=== PATIENT | male | born 1970 | race Asian ===

== ENCOUNTER 2017-02-15 14:40 | Emergency (ER) | payer OTHER ==
--- NOTE | 2017-02-15 14:43 | PDOC ---
History of Present Illness - General History Source: Patient Exam Limitations: No Limitations - History of Present Illness Initial Comments: 02/15/17 14:58 46 y/o M with a PMHx of migraines presents to the ED sent by PCP with RLQ pain for two days. Patient reports some constipation. Patient reports that he lifts weights. He denies nausea, vomiting, diarrhea. Denies back pain, dysuria, hematuria. PCP: Dr. Tamia Urbano <Sona Lorenzo - Last Filed: 02/15/17 16:42> <Jonh Irwin - Last Filed: 02/15/17 16:47> - General Chief Complaint: Pain Stated Complaint: ABD PAIN Time Seen by Provider: 02/15/17 14:43 Past History <Sona Lorenzo - Last Filed: 02/15/17 16:42> <Jonh Irwin - Last Filed: 02/15/17 16:47> - Past Medical History Allergies/Adverse Reactions: Allergies Allergy/AdvReac Type Severity Reaction Status Date / Time No Known Allergies Allergy Verified 02/15/17 14:42 Home Medications: Ambulatory Orders Propranolol HCl [Inderal Xl] 80 mg PO DAILY 02/15/17 Review of Systems - Review of Systems Able to Perform ROS?: Yes Comments:: 02/15/17 14:58 GENERAL/CONSTITUTIONAL: No fever or chills. No weakness. HEAD, EYES, EARS, NOSE AND THROAT: No change in vision. No ear pain or discharge. No sore throat. CARDIOVASCULAR: No chest pain or shortness of breath. RESPIRATORY: No cough, wheezing, or hemoptysis. GASTROINTESTINAL: (+) RLQ pain, constipation. No nausea, vomiting, diarrhea. GENITOURINARY: No dysuria, frequency, or change in urination. MUSCULOSKELETAL: No joint or muscle swelling or pain. No neck or back pain. SKIN: No rash NEUROLOGIC: No headache, vertigo, loss of consciousness, or change in strength/ sensation. ENDOCRINE: No increased thirst. No abnormal weight change. HEMATOLOGIC/LYMPHATIC: No anemia, easy bleeding, or history of blood clots. ALLERGIC/IMMUNOLOGIC: No hives or skin allergy. <Sona Lorenzo - Last Filed: 02/15/17 16:42> *Physical Exam - Vital Signs Last Vital Signs Temp Pulse Resp BP Pulse Ox 97.9 F 73 18 131/81 100 02/15/17 14:40 02/15/17 14:40 02/15/17 14:40 02/15/17 14:40 02/15/17 14:40 - Physical Exam Comments: 02/15/17 14:58 GENERAL: Awake, alert, and fully oriented, in no acute distress HEAD: No signs of trauma EYES: PERRLA, EOMI, sclera anicteric, conjunctiva clear ENT: Auricles normal inspection, hearing grossly normal, nares patent, oropharynx clear without exudates. Moist mucosa NECK: Normal ROM, supple, no lymphadenopathy, JVD, or masses LUNGS: Breath sounds equal, clear to auscultation bilaterally. No wheezes, and no crackles HEART: Regular rate and rhythm, normal S1 and S2, no murmurs, rubs or gallops ABDOMEN: Tender in RLQ. No guarding, no rebound. Soft, normoactive bowel sounds. No masses EXTREMITIES: Normal range of motion, no edema. No clubbing or cyanosis. No cords, erythema, or tenderness NEUROLOGICAL: Cranial nerves II through XII grossly intact. Normal speech, normal gait SKIN: Warm, Dry, normal turgor, no rashes or lesions noted. <Sona Lorenzo - Last Filed: 02/15/17 16:42> ED Treatment Course - LABORATORY CBC & Chemistry Diagram: 02/15/17 15:00 02/15/17 15:00 - RADIOLOGY Radiograph Interpretation: 02/15/17 16:[address] reported by Dr. Colin Zapata Impression: Normal appearing appendix. There is no CT evidence of an acute process in the abdomen pelvis. Correlate clinically to determine further evaluation and follow-up. <Sona Lorenzo - Last Filed: 02/15/17 16:42> - LABORATORY CBC & Chemistry Diagram: 02/15/17 15:00 02/15/17 15:00 <Jonh Irwin - Last Filed: 02/15/17 16:47> Progress Note - Progress Note Progress Note: Pt with RLQ, CT ordered to r/o appendicitis by his PMD. CT negative. Microscopic blood in urine ? passage of kidney stone, will need to follow up with Urologist Pt is in agreement with plan If worsen return to ER <Jonh Irwin - Last Filed: 02/15/17 16:47> *DC/Admit/Observation/Transfer - Attestations Scribe Attestion: 02/15/17 14:58 Documentation prepared by Sona Lorenzo, acting as medical interpreter for Jonh Irwin MD. <Sona Lorenzo - Last Filed: 02/15/17 16:42> - Discharge Dispostion Admit: No <Jonh Irwin - Last Filed: 02/15/17 16:47> Diagnosis at time of Disposition: Abdominal pain Qualifiers: Abdominal location: right lower quadrant Qualified Code(s): R10.31 - Right lower quadrant pain; R10.31 - Right lower quadrant pain Hematuria Qualifiers: Hematuria type: unspecified type Qualified Code(s): R31.9 - Hematuria, unspecified; R31.9 - Hematuria, unspecified - Discharge Dispostion Disposition: HOME Condition at time of disposition: Stable - Referrals Referrals: Tamia Urbano MD [Primary Care Provider] - Clark Evans MD [Staff Physician] - - Patient Instructions Printed Discharge Instructions: DI for Abdominal Pain-Adult, DI for Hematuria Additional Instructions: Fluids, rest, Motrin Follow up with Urologist If worsen return to ER
[2017-02-15 14:46] VITALS: BP 131/81; PULSE 73; TEMP 97.9; BMI 23.2
[2017-02-15 15:15] LABS: BASOPHIL 0.8 % (0-2.0); EOSINOPHIL 1.1 % (0-4.5); MCH 25.9 pg (25.7-33.7); MEAN CELL VOLUME 78.4 fl (80-96); MEAN PLT VOLUME 9.7 fl (7.5-11.1); NEUTROPHILS 66.5 % (42.8-82.8); PLATELET COUNT 214 K/MM3 (134-434); RDW 13.1 % (11.9-15.9); WHITE BLOOD COUNT 7.9 K/mm3 (4.0-10.8)
[2017-02-15 15:30] LABS: URINE APPEARANCE Clear; URINE BILIRUBIN Negative (NEGATIVE); URINE GLUCOSE (UA) Negative (NEGATIVE); URINE KETONE Negative (NEGATIVE); URINE LEUK ESTERASE Negative (NEGATIVE); URINE NITRITE Negative (NEGATIVE); URINE PROTEIN Negative (NEGATIVE); URINE UROBILINOGEN 0.2 (0.2-1.0)
[2017-02-15 15:32] LABS: URINE BLOOD 2+ (NEGATIVE); URINE COLOR YELLOW
[2017-02-15 15:38] LABS: ALBUMIN 4.5 g/dl (3.5-5.0); ALK PHOS 76 U/L (32-92); ANION GAP 4 (8-16); BILIRUBIN,TOTAL 0.4 mg/dl (0.2-1.0); CALCIUM 9.6 mg/dl (8.4-10.2); CO2 29 mmol/L (22-28); CREATININE 0.9 mg/dl (0.6-1.3); GLUCOSE,RANDOM 87 mg/dl (74-106); SGOT/AST 32 U/L (10-42); SGPT/ALT 44 U/L (10-40); TOT PROT 7.2 g/dl (6.4-8.3)
== END 2017-02-15 17:00 | disposition home or self-care (01) ==
LOC: FER 14:40
DX: R31.9 Hematuria, unspecified (principal); R10.31 Right lower quadrant pain
CPT/HCPCS: 36415; 74177-TC; 80053; 81003; 81015; 83690; 85025; 99283-25; C1887

== ENCOUNTER 2018-05-29 16:35 | Observation (INO) | payer OTHER ==
[2018-05-29 16:53] VITALS: BMI 24.1
--- NOTE | 2018-05-29 16:53 | PDOC ---
Attending Attestation - Resident Resident Name: Jacquelyn Corbett - ED Attending Attestation I have performed the following: I have examined & evaluated the patient, The case was reviewed & discussed with the resident, I agree w/resident's findings & plan, Exceptions are as noted - HPI HPI: 05/29/18 17:52 48-year-old male complaining of chest pain for 2 days, intermittent, nonexertional, very slightly aggravated by certain movements. No nausea, diaphoresis, shortness of breath. No epigastric pain or other reflux symptoms. No acute injury, although he does work out with light weights, and worked out yesterday, cutting his workout short due to his symptoms. Father has a history of coronary artery disease with his first OK in his early 60s. He also has diabetes. 3 brothers are without coronary artery disease or diabetes. The patient only has a history of chronic fatigue syndrome worked up by a neurologist, and he is on no medication. - Physicial Exam PE: 05/29/18 17:54 Physical exam reveals normal vital signs and no pulmonary or cardiovascular abnormalities. There is no sternal or rib cage tenderness to palpation, and no distinct aggravation of the pain with rotation of the torso or movement of the left arm. - Medical Decision Making 05/29/18 17:55 Assessment: Atypical chest pain, risk factor of family history, although his father was in his 60s when he had his first OK. EKG shows very subtle ST-T wave changes, with flattening of multiple ST segments in the EKG that was done in the office of the primary physician. These have improved on the present EKG but there is still flattening in lead aVL. Plan: In addition to the new EKG, cardiac enzymes CBC and chemistries. Monitoring. Aspirin. Further evaluation depending on results. 05/29/18 18:15 Cardiac enzymes are negative. However, after discussion with primary physician, Dr. Urbano, and in view of the nonspecific ST-T wave flattening that may indicate intermittent ischemia, patient was admitted for observation and further cardiac evaluation. Dr. Urbano saw the patient in the ER and will admit to his service. Patient appears stable at present, having received aspirin in the ER. Further medication will be prescribed by Dr. Urbano.
[2018-05-29 17:15] LABS: BASO % 0.7 % (0-2.0); EOS % 2.2 % (0-4.5); HEMATOCRIT 41.4 % (35.4-49); HEMOGLOBIN 13.2 GM/dl (11.7-16.9); LYMPH % 26.6 % (8-40); MCHC 31.8 g/dl (32.0-35.9); MEAN CELL VOLUME 81.8 fl (80-96); MEAN PLT VOLUME 8.6 fl (7.5-11.1); MONO % 8.2 % (3.8-10.2); NEUT % 62.3 % (42.8-82.8); PLATELET COUNT 234 K/MM3 (134-434); RBC 5.06 M/mm3 (4.00-5.60); RDW 12.5 % (11.9-15.9); WHITE BLOOD COUNT 7.4 K/mm3 (4.0-10.8)
[2018-05-29 17:36] LABS: ALBUMIN 4.1 g/dl (3.4-5.0); ALK PHOS 89 U/L (45-117); ANION GAP 8 MMOL/L (8-16); BILIRUBIN,TOTAL 0.3 mg/dl (0.2-1); BLOOD UREA NITROGEN 19 mg/dl (7-18); CHLORIDE 102 mmol/L (98-107); CO2 24 mmol/L (21-32); CREATININE 0.9 mg/dl (0.55-1.3); GLUCOSE,RANDOM 97 mg/dl (74-106); SGOT/AST 29 U/L (15-37); SGPT/ALT 26 U/L (13-61); SODIUM 134 mmol/L (136-145); TOT PROT 6.9 g/dl (6.4-8.2)
[2018-05-29] MEDS ORDERED: ASPIRIN 81 MG CHEWABLE TABLETS PO ONE (17:48)
[2018-05-29] MEDS ORDERED: ASPIRIN 81 MG CHEWABLE TABLETS ONE (17:51)
--- NOTE | 2018-05-29 17:53 | PDOC ---
History of Present Illness - General Chief Complaint: Pain Stated Complaint: CHEST PAIN 2 DAYS Time Seen by Provider: 05/29/18 16:39 History Source: Patient Exam Limitations: No Limitations - History of Present Illness Initial Comments: 47YOM with h/o chronic fatigue and migraines, who p/w left anterior chest pain radiating to his left lateral chest for the past 2 days, fluctuating, and not associated with SOB, sweats, nausea, vomiting, lightheadedness, LOC, back pain, abdominal pain, or any other symptoms. He saw his PCP (Dr. Tamia Urbano) earlier today for this complaint and had an EKG showing TW flattening in I, III , aVL, aVF, and the precordial leads. The patient notes he has not taken any medications for this pain, never had this pain before. 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 Has family h/o CAD (father had multiple AL's after age 60) but no smoking, HTN, HLD, obesity, or other risk factors for ACS. Past History - Past Medical History Allergies/Adverse Reactions: Allergies Allergy/AdvReac Type Severity Reaction Status Date / Time No Known Allergies Allergy Verified 05/29/18 16:37 Home Medications: Ambulatory Orders NK [No Known Home Medication] 05/29/18 COPD: No Other medical history: MIGRAINES - Suicide/Smoking/Psychosocial Hx Smoking History: Never smoked Have you smoked in the past 12 months: No Information on smoking cessation initiated: No Hx Alcohol Use: Yes (SOCIAL) Drug/Substance Use Hx: No Review of Systems - Review of Systems Able to Perform ROS?: Yes Comments:: GEN: fatigue, generalized weakness, no fever, chills, or malaise HEENT: no ear pain, eye pain, throat pain, throat swelling, nosebleed, vision change, or loose teeth SKIN: no cuts, abrasions, bruises, rashes, or jaundice CV: chest pain, no palpitations, or LOC RESP: no cough or SOB GI: no abdominal pain, nausea, vomiting, or black/bloody stool : no hematuria or flank pain/bruising MSK: no muscle weakness, muscle pain, joint pain, or joint swelling NEURO: no headache, seizure, numbness, tingling, or focal weakness PSYCH: no suicidality, homicidality, or substance use *Physical Exam - Vital Signs Last Vital Signs Temp Pulse Resp BP Pulse Ox 97.5 F L 79 18 127/79 100 05/29/18 16:36 05/29/18 16:36 05/29/18 16:36 05/29/18 16:36 05/29/18 16:36 - Physical Exam Comments: HEENT: PERRLA, EOMI without pain, moist mucous membranes CHEST WALL: no tenderness to palpation or compression of the chest wall, no flail chest, no costal stepoff or deformity, no bruises or lesions, no rash CARDIOVASCULAR: regular rhythm, normal S1S2, no MGR, capillary refill <2 seconds RESPIRATORY: symmetric chest expansion on inspiration, no increased WOB, no cyanosis ABDOMEN: abdomen soft, nondistended, nontender EXTREMITIES: no obvious deformity, full ROM without pain NECK&BACK: no neck or back hematoma, no spinal step-off or deformity, no paraspinous ttp CTL spine NEURO: good rectal tone, no saddle anesthesia, CN II-XII grossly intact, 5/5 strength and intact sensation throughout : no blood at the urethral meatus, normal external genitalia, no CVA tenderness SKIN: warm and dry, no pallor, no abrasions, no rash Moderate Sedation - Procedure Monitoring Vital Signs: Procedure Monitoring Vital Signs Temperature 97.5 F L 05/29/18 16:36 Pulse Rate 79 05/29/18 16:36 Respiratory Rate 18 05/29/18 16:36 Blood Pressure 127/79 05/29/18 16:36 O2 Sat by Pulse Oximetry (%) 100 05/29/18 16:36 Heart Score/ECG Review - History History: Moderately suspicious - Electrocardiogram EKG: Non specific repolarization disturbance - Age Age: 45-65 - Risk Factors Risk Factors Heart Score: No Hx Hypercholesterolemia, No Hx Hypertension, No Hx Diabetes, No Smoking History, Yes Positive family hx of cardiac disease, No Hx Obesity Based on the list above the patient has:: 1-2 risk factors - Troponin Troponin: </= normal limit - Score Heart Score - Total: 4 - ECG Intrepretation Comment:: 05/29/18 16:57 Sinus rhythm, rate 79, normal axis and intervals, TW flattening in aVL, no other ST-T changes ED Treatment Course - LABORATORY CBC & Chemistry Diagram: 05/29/18 17:10 05/29/18 17:12 - RADIOLOGY Radiology Studies Ordered: Category Date Time Status CHEST PA & LAT [RAD] Stat Radiology 05/29/18 17:00 Completed Medical Decision Making - Medical Decision Making 47 YOM p/w 2 days of left anterior chest pain. Initial Vital Signs Temp Pulse Resp BP Pulse Ox 97.5 F L 79 18 127/79 100 05/29/18 16:36 05/29/18 16:36 05/29/18 16:36 05/29/18 16:36 05/29/18 16:36 Exam: As noted in Physical Exam section. W/U ordered: Labs as noted below, EKG CXR. TX ordered: monitor, ASA 324, will give O2 via NC if needed DDX IBNLT: The patient must be ruled out for ACS given his family history and the fact that he had TW flattening on EKG performed in PCP clinic earlier today. Most likely this is costochondritis or muscular pain. Less likely any of the following more serious etiologies as the patient appears very comfortable, but still considered on the ddx: pericarditis, aortic dissection, AAA, PE, esophageal tear, esophagitis (e.g. pill), gastritis, PUD, pleurisy, pleuritis, MVP, panic/anxiety, etc. EKG: Reviewed; results as noted in ECG Review section. CXR: Nothing acute. Laboratory Tests 05/29/18 05/29/18 05/29/18 17:10 17:10 17:12 WBC 7.4 RBC 5.06 Hgb 13.2 Hct 41.4 MCV 81.8 MCH 26.0 MCHC 31.8 L RDW 12.5 Plt Count 234 MPV 8.6 D Absolute Neuts (auto) 4.5 Neutrophils % 62.3 Lymphocytes % 26.6 Monocytes % 8.2 Eosinophils % 2.2 D Basophils % 0.7 Sodium 134 L Potassium 4.0 Chloride 102 Carbon Dioxide 24 Anion Gap 8 BUN 19 H Creatinine 0.9 Creat Clearance w eGFR > 60 Random Glucose 97 Calcium 9.0 Total Bilirubin 0.3 AST 29 ALT 26 Alkaline Phosphatase 89 Troponin I < 0.03 Total Protein 6.9 Albumin 4.1 HEART score indicated Pt is higher risk and should be managed in hospital with cardiology consult. The Pt is unsafe for discharge at this time. They require further hospital observation, workup, and treatment. 05/29/18 18:[address] Urbano; in agreement patient should stay for observation. Dr. Urbano is in the department literally 3 minutes after I speak with him seeing the patient. He will place orders and take the admission; Decision to Admit order placed. *DC/Admit/Observation/Transfer Diagnosis at time of Disposition: Flattened T wave Chest pain Qualifiers: Chest pain type: unspecified Qualified Code(s): R07.9 - Chest pain, unspecified - Discharge Dispostion Condition at time of disposition: Guarded Decision to Admit order: Yes - Referrals - Patient Instructions - Post Discharge Activity
[2018-05-29] MEDS ORDERED: NITROGLYCERIN 2% OINTMENT - 1GM PACKET TD ONE ×2 (18:42→18:52)
[2018-05-29] MEDS ORDERED: ATORVASTATIN CA 40 MG TABLET (FP) PO ONE (18:42)
[2018-05-29] MEDS ORDERED: ENOXAPARIN NA (PORCINE) 60 MG/0.6 ML DISP.SYRIN SQ ONE (18:52)
[2018-05-29] MEDS ORDERED: ATORVASTATIN CA 20 MG TABLET (FP) ONE (18:52)
[2018-05-29] MEDS: ENOXAPARIN NA (PORCINE) 40 MG/0.4 ML DISP.SYRIN SQ ONE ×2 (18:56→18:57)
[2018-05-29] MEDS ORDERED: ENOXAPARIN NA (PORCINE) 60 MG/0.6 ML DISP.SYRIN SQ SCH (19:00)
[2018-05-29] MEDS ORDERED: ACETAMINOPHEN 325 MG TABLET (FP) PO PRN (20:06)
[2018-05-29] MEDS ORDERED: NITROGLYCERIN SUBLINGUAL 1/150 0.4 MG TAB SL PRN (20:15)
--- NOTE | 2018-05-29 20:15 | HP ---
Admitting History and Physical - Primary Care Physician PCP: Tamia Urbano - Admission Chief Complaint: cp History of Present Illness: pt send to er by me due to intermittent cp x 2 days ekg done in office -- subtle changes +ve family h/o. No radiation Non reporducable pain on left side no sob no other issues no fever/ chills fist troponin -ve will keep for observation discussed with er physician History Source: Patient Limitations to Obtaining History: No Limitations - Past Medical History Renal/: Yes: Hematuria (microsopic -- seen urologist -- no active issues as per pt) - Smoking History Smoking history: Never smoked Have you smoked in the past 12 months: No - Alcohol/Substance Use Hx Alcohol Use: Yes (SOCIAL) History of Substance Use: reports: None - Social History History of Recent Travel: No Home Medications - Allergies Allergies/Adverse Reactions: Allergies Allergy/AdvReac Type Severity Reaction Status Date / Time No Known Allergies Allergy Verified 05/29/18 16:37 - Home Medications Home Medications: Ambulatory Orders NK [No Known Home Medication] 05/29/18 Family Disease History - Family Disease History Family Disease History: Other: Father (cad -- mi at age 60) Review of Systems - Review of Systems Constitutional: reports: No Symptoms Eyes: reports: No Symptoms HENT: reports: No Symptoms Neck: reports: No Symptoms Cardiovascular: reports: Chest Pain Respiratory: reports: No Symptoms Gastrointestinal: reports: No Symptoms Genitourinary: reports: No Symptoms Neurological: reports: No Symptoms Psychiatric: reports: No Symptoms Physical Examination Vital Signs: Vital Signs Temperature 97.6 F 05/29/18 20:00 Pulse Rate 69 05/29/18 20:00 Respiratory Rate 17 05/29/18 20:00 Blood Pressure 98/62 05/29/18 20:00 O2 Sat by Pulse Oximetry (%) 97 05/29/18 20:00 Constitutional: Yes: No Distress, Calm Eyes: Yes: Conjunctiva Clear HENT: Yes: WNL Neck: Yes: Supple Cardiovascular: Yes: Regular Rate and Rhythm Respiratory: Yes: CTA Bilaterally Gastrointestinal: Yes: Soft Edema: No Neurological: Yes: Alert Psychiatric: Yes: Alert Labs: CBC, BMP 05/29/18 17:10 05/29/18 17:12 Imaging - Results Chest X-ray: Report Reviewed EKG: Report Reviewed Problem List - Problems (1) Chest pain Code(s): R07.9 - CHEST PAIN, UNSPECIFIED Qualifiers: Chest pain type: unspecified Qualified Code(s): R07.9 - Chest pain, unspecified (2) Flattened T wave Code(s): R94.31 - ABNORMAL ELECTROCARDIOGRAM [ECG] [EKG] Assessment/Plan Chest pain-- Likley angina keep overnight start on statin echo serial troponins cardioloy eval will need stress test discussed with pt will follow
[2018-05-29] MEDS ORDERED: ATORVASTATIN CA 40 MG TABLET (FP) PO SCH (22:00)
[2018-05-30 08:33] LABS: CHOLESTEROL 136 mg/dl (50-200); HDL CHOLESTEROL 51 mg/dl (40-60); LDL CHOLESTEROL (ONLY DFH) 69 mg/dl (0-100); TRIGLYCERIDES 81 mg/dl (0-150)
[2018-05-30 08:47] LABS: URINE APPEARANCE Clear; URINE BILIRUBIN Negative (NEGATIVE); URINE COLOR Amber; URINE GLUCOSE (UA) Negative (NEGATIVE); URINE KETONE Negative (NEGATIVE); URINE LEUK ESTERASE Negative (NEGATIVE); URINE NITRITE Negative (NEGATIVE); URINE PROTEIN Negative (NEGATIVE); URINE UROBILINOGEN 0.2 (0.2-1.0)
[2018-05-30 09:02] LABS: URINE MUCUS 3+; URINE RBC 40-60 /hpf (0-3); URINE WBC 0-2 (0-2)
--- NOTE | 2018-05-30 09:51 | CON.CARD ---
Consult Consult Specialty:: Cardiology Referred by:: Tamia Urbano MD Reason for Consultation:: Chest pain - History of Present Illness Chief Complaint: Chest pain History of Present Illness: 47 year old male family h/o of CAD with father having HI in early 60s, chronic fatigue syndrome reports non-exertional chest pressure for 2 days, intermittent , nonexertional, very slightly aggravated by certain movements without associated symptoms of dyspnea, palpitations, near or true syncope, orthopnea, PND or LE edema. No further symptoms since admission, ruled out for HI. - History Source History Provided By: Patient Limitations to Obtaining History: No Limitations - Past Medical History Renal/: Yes: Hematuria (microsopic -- seen urologist -- no active issues as per pt) - Alcohol/Substance Use Hx Alcohol Use: Yes (SOCIAL) History of Substance Use: reports: None - Smoking History Smoking history: Never smoked Have you smoked in the past 12 months: No - Social History History of Recent Travel: No Home Medications - Allergies Allergies/Adverse Reactions: Allergies Allergy/AdvReac Type Severity Reaction Status Date / Time No Known Allergies Allergy Verified 05/29/18 16:37 - Home Medications Home Medications: Ambulatory Orders NK [No Known Home Medication] 05/29/18 Family Disease History - Family Disease History Family Disease History: Other: Father (cad -- mi at age 60) Review of Systems - Review of Systems Cardiovascular: reports: Chest Pain Vital Signs: Vital Signs Temperature 98.7 F 05/30/18 04:07 Pulse Rate 84 05/30/18 04:07 Respiratory Rate 18 05/30/18 04:07 Blood Pressure 102/55 L 05/30/18 04:07 O2 Sat by Pulse Oximetry (%) 96 05/30/18 04:07 Constitutional: Yes: No Distress, Calm, Thin Neck: Yes: Supple Respiratory: Yes: Regular, CTA Bilaterally Gastrointestinal: Yes: Normal Bowel Sounds, Soft Cardiovascular: Yes: Regular Rate and Rhythm JVD: No Carotid Bruit: No Heart Sounds: Yes: S1, S2 Edema: No - Other Data Labs, Other Data: CBC, BMP 05/29/18 17:10 05/29/18 17:12 Troponin, BNP 05/29/18 05/29/18 17:10 20:35 Troponin I < 0.03 < 0.03 Troponin, BNP 05/29/18 05/29/18 17:10 20:35 Troponin I < 0.03 < 0.03 NSR @ 66 nonspec T changes Tele: No events Imaging - Results Chest X-ray: Report Reviewed (NAD) Problem List - Problems (1) Chest pain Code(s): R07.9 - CHEST PAIN, UNSPECIFIED Qualifiers: Chest pain type: unspecified Qualified Code(s): R07.9 - Chest pain, unspecified Assessment/Plan 1. Chest pain, r/o CAD 2. Family h/o premature CAD P:1. Ruled out for HI 2. F/u echo already performed and Ha1c 3. Stress testing to r/o ischemia, may be performed as outpatient 4. Thank you for consultative opportunity
[2018-05-30] MEDS ORDERED: ASPIRIN 81 MG CHEWABLE TABLETS PO SCH (10:00)
[2018-05-30 10:23] VITALS: BP 106/66; PULSE 80; TEMP 98.4
--- NOTE | 2018-05-30 10:42 | DS ---
Physical Examination Vital Signs: Vital Signs Temperature 98.4 F 05/30/18 10:00 Pulse Rate 80 05/30/18 10:00 Respiratory Rate 18 05/30/18 10:00 Blood Pressure 106/66 05/30/18 10:00 O2 Sat by Pulse Oximetry (%) 96 05/30/18 10:00 Findings/Remarks: patient admitted for chest pain and EKG changes WI ruled out Echo--- done today----will review once available cardiology evaluation noted/appreciated Stress test as outpatient we will be following in office--next week Labs: CBC, BMP 05/29/18 17:10 05/29/18 17:12 Discharge Summary Reason For Visit: CHEST PAIN/DECREASED HEIGHT OF T WAVE Current Active Problems Chest pain (Acute) Flattened T wave (Acute) Hospital Course: as mentioned above Condition: Guarded - Instructions Diet, Activity, Other Instructions: Meds will be at your pharmacy. Referrals: Marcelino Adame MD [Staff Physician] - (Stress Test as outpatient, call office for appointment.) Tamia Urbano MD [Staff Physician] - 1 Week Disposition: HOME - Home Medications Comprehensive Discharge Medication List: Ambulatory Orders Acetaminophen [Tylenol .Regular Strength -] 650 mg PO Q4H PRN tablet 05/30/18 Nitroglycerin Sublingual [Nitrostat -] 0.4 mg SL Q5M PRN #10 tab MDD 3 05/30/18
--- NOTE | 2018-05-30 12:25 | EKG ---
Test Reason : Blood Pressure : / mmHG Vent. Rate : 080 BPM Atrial Rate : 080 BPM P-R Int : 136 ms QRS Dur : 088 ms QT Int : 374 ms P-R-T Axes : 028 004 029 degrees QTc Int : 431 ms NORMAL SINUS RHYTHM NONSPECIFIC ST AND T WAVE ABNORMALITY ABNORMAL ECG WHEN COMPARED WITH ECG OF 29-MAY-2018 23:15, NO SIGNIFICANT CHANGE WAS FOUND Confirmed by ÁLVARO MCCLELLAND MD ([id number]) on 05/30/2018 12:25:05 PM Referred By: Tamia Urbano Confirmed By:ÁLVARO MCCLELLAND MD
--- NOTE | 2018-05-30 12:25 | EKG ---
Test Reason : Blood Pressure : / mmHG Vent. Rate : 079 BPM Atrial Rate : 079 BPM P-R Int : 136 ms QRS Dur : 094 ms QT Int : 356 ms P-R-T Axes : 033 024 069 degrees QTc Int : 408 ms NORMAL SINUS RHYTHM NONSPECIFIC T WAVE ABNORMALITY ABNORMAL ECG NO PREVIOUS ECGS AVAILABLE Confirmed by KRYSTIN SKY, ÁLVARO ([id number]) on 05/30/2018 12:25:38 PM Referred By: Tamia Urbano Confirmed By:ÁLVARO MCCLELLAND MD
--- NOTE | 2018-05-30 12:25 | EKG ---
Test Reason : Blood Pressure : / mmHG Vent. Rate : 066 BPM Atrial Rate : 066 BPM P-R Int : 146 ms QRS Dur : 086 ms QT Int : 376 ms P-R-T Axes : 026 005 060 degrees QTc Int : 394 ms NORMAL SINUS RHYTHM NONSPECIFIC T WAVE ABNORMALITY ABNORMAL ECG WHEN COMPARED WITH ECG OF 29-MAY-2018 16:57, NO SIGNIFICANT CHANGE WAS FOUND Confirmed by ÁLVARO MCCLELLAND MD ([id number]) on 05/30/2018 12:25:36 PM Referred By: Tamia Urbano Confirmed By:ÁLVARO MCCLELLAND MD
--- NOTE | 2018-05-30 13:35 | ECHO ---
Name: ALPA STODDARD Exam:Adult Echocardiogram Study Date: 05/30/2018 08:06 AM Age: 47 yrs Reason For Study: Chest pain Height: 65 in Weight: 146 lb BSA: 1.7 m2 MMode/2D Measurements & Calculations IVSd: 0.79 cm Ao root diam: 3.1 cm LVIDd: 3.9 cm LA dimension: 2.8 cm LVIDs: 2.6 cm LVPWd: 0.77 cm EDV(Teich): 66.4 ml LVOT diam: 2.0 cm ESV(Teich): 25.7 ml Doppler Measurements & Calculations MV E max grey: 51.6 cm/sec Ao V2 max: 106.8 cm/sec MV A max grey: 57.6 cm/sec Ao max P.6 mmHg MV E/A: 0.90 VIGNESH(V,D): 2.9 cm2 LV V1 max P.8 mmHg TR max grey: 180.6 cm/sec LV V1 max: 97.2 cm/sec TR max P.0 mmHg Procedure A complete two-dimensional transthoracic echocardiogram was performed (2D, M-mode, Doppler and color flow Doppler). Left Ventricle The left ventricular size, thickness and function are normal. The left ventricular ejection fraction is normal. Ejection Fraction = 60-65%. The left ventricular wall motion is normal. Right Ventricle The right ventricle is normal in size and function. Atria Normal left and right atrial size and function. Mitral Valve There is no mitral regurgitation noted. Tricuspid Valve There is trace tricuspid regurgitation. There was insufficient TR detected to calculate RV systolic p ressure. Aortic Valve The aortic valve is trileaflet. No hemodynamically significant valvular aortic stenosis. No aortic regurgitation is present. Pulmonic Valve There is no pulmonic valvular regurgitation. Great Vessels The aortic root is normal size. Pericardium/Pleura There is no pericardial effusion. Interpretation Summary The left ventricular size, thickness and function are normal The right ventricle is normal in size and function. There is trace tricuspid regurgitation. MD Samuel Dooley 05/30/2018 01:35 PM
== END 2018-05-30 11:29 | disposition home or self-care (01) ==
LOC: FER 16:35 → FM/S 18:16
PROVIDERS: ADMIT Internal Medicine; ATTEND Internal Medicine
PROC: 3E013GC Introduction of Other Therapeutic Substance into Subcutaneous Tissue, Percutaneous Approach (ICD-10-PCS; principal; 2018-05-29)
DX: R07.9 Chest pain, unspecified (principal); Z82.49 Family history of ischemic heart disease and other diseases of the circulatory system; R94.31 Abnormal electrocardiogram [ECG] [EKG]
CPT/HCPCS: 36415; 71046-TC-FY; 80053; 80061; 81003; 81015; 83036; 84443; 84484; 85025; 93005; 93306-TC; 96372; 99285-25; G0378